=== PATIENT | female | born 1980 ===

== ENCOUNTER → 2019-08-01 | Outpatient (CLI) | payer OTHER ==
[2019-08-03 22:08] LABS: CHLAMYDIA TRACHOMATIS, NAA Negative (Negative); NEISSERIA GONORRHOEAE, NAA Negative (Negative)
== END | disposition home or self-care (01) ==
LOC: LAB 20:21 → LAB SHORT 20:21
PROVIDERS: Family Medicine
DX: Z72.51 High risk heterosexual behavior (principal)
CPT/HCPCS: 87491; 87591